=== PATIENT | male | born 1985 ===

== ENCOUNTER 2016-09-03 19:16 | Inpatient (IN) | payer SELFPAY ==
[~2016-09-03] VITALS: Ht 180.3 cm; Wt 60.7 kg
[2016-09-03] MEDS ORDERED: LORazepam 2 MG/ML VIAL ONE (19:55)
[2016-09-03] MEDS ORDERED: DiphenhydrAMINE HCL 50 MG/ML VIAL ONE (19:55)
[2016-09-03] MEDS ORDERED: HALOPERIDOL LACTATE 5 MG/ML VIAL ONE (19:56)
[2016-09-03] MEDS ORDERED: DiphenhydrAMINE HCL 50 MG/ML VIAL IM ONE (20:00)
[2016-09-03] MEDS ORDERED: HALOPERIDOL LACTATE 5 MG/ML VIAL IM ONE (20:00)
[2016-09-03] MEDS ORDERED: LORazepam 2 MG/ML VIAL IM ONE (20:00)
[2016-09-03 20:21] LABS: ANION GAP 10 mmol/L (8-16); CALCIUM, TOTAL 8.7 mg/dL (8.8-10.5); CARBON DIOXIDE 30 mmol/L (22-29); CHLORIDE 106 mmol/L (98-107); GLOMERULAR FILTR. RATE CALC > 60 mL/min (>60); POTASSIUM 3.9 mmol/L (3.5-5.1); SODIUM SERUM 146 mmol/L (136-145); UREA NITROGEN, BLOOD 18 mg/dL (7-18)
[2016-09-03 20:22] LABS: BASOPHILS # (AUTO) 0.04 K/uL (0.00-0.20); BASOPHILS % (AUTO) 0.5 % (0.0-2.0); EOSINOPHILS # (AUTO) 0.68 K/uL (0.00-0.70); EOSINOPHILS % (AUTO) 8.31 % (1.0-6.0); HEMATOCRIT 33.6 % (41-53); HEMOGLOBIN 10.7 g/dL (13.5-17.5); LYMPHOCYTES # (AUTO) 1.3 K/uL (1.0-4.8); LYMPHOCYTES % (AUTO) 15.9 % (22.0-44.0); MEAN CORPUSCULAR HGB CONC 31.9 G/dL (31.0-37.0); MEAN CORPUSCULAR VOLUME 85 fL (80-100); MONOCYTES # (AUTO) 0.5 K/uL (0.1-1.0); MONOCYTES % (AUTO) 6.6 % (2.0-9.0); NEUTROPHILS # (AUTO) 5.6 K/uL (1.8-7.7); NEUTROPHILS % (AUTO) 68.7 % (40.0-70.0); PLATELET COUNT (AUTO) 326 K/uL (150-450); RED BLOOD CELL COUNT(AUTO) 3.98 MIL/uL (4.50-5.90); RED CELL DISTRIBUTION WIDTH 15.6 % (11.5-14.5); WHITE BLOOD COUNT (AUTO) 8.1 K/uL (4.5-11.0)
[2016-09-03 20:26] LABS: ALANINE AMINOTRANSFERASE 26 U/L (12-78); ALBUMIN 3.6 g/dL (3.4-5.0); ASPARTATE AMINOTRANSFERASE 22 U/L (15-37); BILIRUBIN,TOTAL 0.4 mg/dL (0.1-1.0); TOTAL PROTEIN, SERUM 7.2 g/dL (6.4-8.2)
[2016-09-03 20:39] LABS: RBC MORPHOLOGY COMMENT ABNORMAL RBC MORPH
[2016-09-03] MEDS ORDERED: LORazepam 2 MG TABLET PO PRN (22:30)
[2016-09-03] MEDS ORDERED: HALOPERIDOL 5 MG TABLET PO PRN (22:30)
[2016-09-03] MEDS ORDERED: ZOLPIDEM TARTRATE 10 MG TABLET PO PRN (22:30)
[2016-09-04 07:41] LABS: CHOL/HDL RATIO 1.8 (4.2-7.3)
[2016-09-04 16:00] VITALS: BP 118/72
[2016-09-04] MEDS ORDERED: PNEUMOCOCCAL VACCINE POLYVALENT 0.5 ML VIAL [PPSV23] IM ONE (17:30)
[2016-09-05 06:26] VITALS: BP 142/95
[2016-09-05 08:11] VITALS: BP 132/78
[2016-09-05 16:00] VITALS: BP 127/77
[2016-09-06] MEDS: ZIPRASIDONE HCL 80 MG CAPSULE PO SCH ×2 (07:00→17:15)
[2016-09-06] MEDS: DIVALPROEX SODIUM 500 MG DR TABLET PO SCH ×3 (08:17→17:16)
[2016-09-06 08:42] VITALS: BP 131/80
[2016-09-06 16:00] VITALS: BP 142/78
[2016-09-07] MEDS: ZIPRASIDONE HCL 80 MG CAPSULE PO SCH (06:31)
[2016-09-07] MEDS: DIVALPROEX SODIUM 500 MG DR TABLET PO SCH (08:49)
[2016-09-07] MEDS ORDERED: DIVA500T35 PO (10:52)
[2016-09-07] MEDS ORDERED: ZIPR80CA2 PO (10:52)
== END 2016-09-07 15:05 | disposition home or self-care (01) | DRG 885 ==
LOC: EMS 19:18 → AHU 09-04 08:21 → B3A 09-04 14:26
PROVIDERS: ADMIT Psychiatry & Neurology Psychiatry; ATTEND Psychiatry & Neurology Psychiatry
DX: F20.0 Paranoid schizophrenia (principal); D64.9 Anemia, unspecified; Z28.21 Immunization not carried out because of patient refusal
CPT/HCPCS: 96372; 99285; G0480; J1200; J1630; J2060